=== PATIENT | male | born 1980 | race Caucasian/White ===

== ENCOUNTER 2022-05-08 16:51 | Observation (INO) ==
[2022-05-08 17:44] LABS: Basophils # 0.1 K/mcL (0.0-0.2); Eosinophils # 0.1 K/mcL (0.0-0.6); Eosinophils % 0.8 %; Hematocrit 42.1 % (37.5-50.1); Hemoglobin 13.9 g/dL (12.9-16.9); Immature Granulocytes % 0.4 % (0-4); Lymphocytes # 1.7 K/mcL (0.6-4.6); Lymphocytes % 15.9 %; Mean Corpuscular Hemoglobin 29.1 pg (28.0-33.3); Mean Corpuscular Volume 88.3 fL (83.0-100.0); Mean Platelet Volume 10.7 fL (9.4-12.4); Monocytes # 0.7 K/mcL (0.0-1.3); Monocytes % 6.8 %; Platelet Count 184 K/mcL (140-400); Red Blood Count 4.77 M/mcL (4.19-5.50); Red Cell Distribution Width 14.8 % (11.5-14.5); Segmented Neutrophils % 75.1 %; White Blood Count 10.7 K/mcL (4.3-11.1)
[2022-05-08 18:03] LABS: Alanine Aminotransferase 10 Units/L (7-52); Albumin 3.9 g/dL (3.5-5.7); Albumin/Globulin Ratio 1.1 (1.1-2.2); Alkaline Phosphatase 141 Units/L (34-104); Amylase 47 Units/L (29-103); Aspartate Amino Transferase 29 Units/L (13-39); BUN/Creatinine Ratio 10 (6-26); Bilirubin,Direct 0.7 mg/dL (0.0-0.2); Bilirubin,Indirect 1.4 mg/dL (0.0-1.0); Bilirubin,Total 2.1 mg/dL (0.3-1.0); Blood Urea Nitrogen 5 mg/dL (6-20); Calcium 9.4 mg/dL (8.6-10.3); Carbon Dioxide 18 mEq/L (23-29); Chloride 102 mEq/L (98-107); Globulin 3.6 g/dL (2.4-3.5); Glucose 108 mg/dL (70-105); Lipase 98 Units/L (11-82); Osmolality,Calculated 270 (280-300); Potassium 3.9 mEq/L (3.5-5.1); Sodium 131 mEq/L (136-145); Total Protein 7.5 g/dL (6.4-8.9)
[2022-05-08] MEDS ORDERED: Ondansetron ODT 4 MG TAB.RAPDIS SL ONE (20:44)
[2022-05-08] MEDS ORDERED: 0.9 % Sodium Chloride 1,000 ML IVC ONE (20:44)
[2022-05-08] MEDS ORDERED: Morphine Sulfate 2 MG/ML SYRINGE IVP ONE (20:44)
[2022-05-08] MEDS ORDERED: Iopamidol - 370 500 ML MLS IVP ONE (20:46)
[2022-05-08 21:42] LABS: INR 1.8; Prothrombin Time 19.5 Seconds (9.4-12.1)
[2022-05-08 22:47] LABS: Bilirubin,Urine Negative (Negative); Blood,Urine Negative (Negative); Clarity,Urine Clear (Clear); Color,Urine Yellow (Yellow); Glucose,Urine (UA) Normal (Normal); Ketones,Urine Trace mg/dL (Negative); Leukocyte Esterase,Urine Negative (Negative); Nitrite,Urine Negative (Negative); PH,Urine 5.5 pH Units (5.0-8.0); Protein,Urine Trace mg/dL (Neg-Trace); Specific Gravity,Urine > 1.030 (1.010-1.025); Urobilinogen,Urine Normal (Normal)
[2022-05-08] MEDS ORDERED: cefTRIAXone 1,000 MG in Water for inj. (sterile) 10 ML IVP ONE (23:17)
[2022-05-08] MEDS ORDERED: MetroNIDAZOLE 500 MG/100 ML 500 MG/100 ML BAG IVPB ONE (23:17)
[2022-05-08] MEDS ORDERED: Ondansetron 4 MG/2 ML VIAL IVP PRN (23:28)
[2022-05-08] MEDS ORDERED: Melatonin 3 MG TABLET PO PRN (23:28)
[2022-05-08] MEDS ORDERED: Naloxone 0.4 MG/ML INJ IVP PRN (23:28)
[2022-05-09] MEDS ORDERED: Ringers Solution, Lactated 1,000 ML IVC SCH (00:15)
[2022-05-09] MEDS ORDERED: *HR* HYDROcodone/Acet 5/325 mg TABLET PO PRN (01:29)
[2022-05-09] MEDS ORDERED: *HR* HYDROcodone/Acet 10/325 mg TABLET PO PRN (01:29)
[2022-05-09] MEDS: *HR* OxyCODONE Immed Rel 5 MG TABLET PO PRN (03:04)
[2022-05-09 03:06] LABS: Hematocrit 36.6 % (37.5-50.1); Mean Corpuscular HGB Conc 32.5 g/dL (31.6-35.5); Mean Corpuscular Hemoglobin 29.1 pg (28.0-33.3); Mean Corpuscular Volume 89.5 fL (83.0-100.0); Mean Platelet Volume 10.2 fL (9.4-12.4); Platelet Count 176 K/mcL (140-400); Red Blood Count 4.09 M/mcL (4.19-5.50); Red Cell Distribution Width 14.6 % (11.5-14.5); White Blood Count 7.6 K/mcL (4.3-11.1)
[2022-05-09 03:17] LABS: Hemoglobin 11.9 g/dL (12.9-16.9)
[2022-05-09 03:19] LABS: INR 1.7; Prothrombin Time 19.4 Seconds (9.4-12.1)
[2022-05-09 03:27] LABS: Alanine Aminotransferase 10 Units/L (7-52); Albumin 3.4 g/dL (3.5-5.7); Alkaline Phosphatase 120 Units/L (34-104); Aspartate Amino Transferase 28 Units/L (13-39); BUN/Creatinine Ratio 11 (6-26); Bilirubin,Direct 0.6 mg/dL (0.0-0.2); Bilirubin,Total 1.6 mg/dL (0.3-1.0); Blood Urea Nitrogen 5 mg/dL (6-20); Calcium 8.5 mg/dL (8.6-10.3); Carbon Dioxide 22 mEq/L (23-29); Chloride 101 mEq/L (98-107); Globulin 3.3 g/dL (2.4-3.5); Glucose 90 mg/dL (70-105); Magnesium 1.9 mg/dL (1.6-2.6); Osmolality,Calculated 269 (280-300); Phosphorous 3.8 mg/dL (2.7-4.5); Potassium 3.9 mEq/L (3.5-5.1); Sodium 131 mEq/L (136-145); Total Protein 6.7 g/dL (6.4-8.9)
[2022-05-09] MEDS: *HR* HYDROmorphone (PF) 1 MG/ML SYRINGE IVP PRN ×4 (04:52→19:59)
[2022-05-09] MEDS: Lactulose Oral Soln 20 GM/30 ML UDC PO SCH ×4 (08:36→19:59)
[2022-05-09] MEDS: MetroNIDAZOLE 500 MG/100 ML 500 MG/100 ML BAG IVPB SCH ×2 (08:37→16:11)
[2022-05-09] MEDS ORDERED: Furosemide 20 MG TABLET PO SCH (09:00)
[2022-05-09] MEDS: Gabapentin 100 MG CAPSULE PO SCH ×2 (15:22→19:59)
[2022-05-09] MEDS: ALPRAZolam 0.25 MG TABLET PO PRN (16:11)
[2022-05-10] MEDS: ALPRAZolam 0.25 MG TABLET PO PRN ×3 (00:02→16:36)
[2022-05-10] MEDS: MetroNIDAZOLE 500 MG/100 ML 500 MG/100 ML BAG IVPB SCH ×2 (00:02→08:29)
[2022-05-10] MEDS: *HR* HYDROmorphone (PF) 1 MG/ML SYRINGE IVP PRN ×2 (00:02→04:17)
[2022-05-10] MEDS: *HR* OxyCODONE Immed Rel 5 MG TABLET PO PRN ×4 (02:16→20:55)
[2022-05-10 02:29] LABS: Basophils # 0.1 K/mcL (0.0-0.2); Basophils % 1.4 %; Eosinophils # 0.1 K/mcL (0.0-0.6); Eosinophils % 2.9 %; Hematocrit 35.2 % (37.5-50.1); Hemoglobin 11.6 g/dL (12.9-16.9); Immature Granulocytes % 0.2 % (0-4); Lymphocytes # 1.2 K/mcL (0.6-4.6); Mean Corpuscular Hemoglobin 29.1 pg (28.0-33.3); Mean Corpuscular Volume 88.4 fL (83.0-100.0); Mean Platelet Volume 10.6 fL (9.4-12.4); Monocytes # 0.6 K/mcL (0.0-1.3); Monocytes % 13.1 %; Neutrophils # 2.4 K/mcL (1.6-8.9); Platelet Count 158 K/mcL (140-400); Red Blood Count 3.98 M/mcL (4.19-5.50); Red Cell Distribution Width 14.7 % (11.5-14.5); Segmented Neutrophils % 54.4 %; White Blood Count 4.4 K/mcL (4.3-11.1)
[2022-05-10 02:47] LABS: Alanine Aminotransferase 14 Units/L (7-52); Albumin 3.2 g/dL (3.5-5.7); Alkaline Phosphatase 108 Units/L (34-104); Aspartate Amino Transferase 34 Units/L (13-39); BUN/Creatinine Ratio 5 (6-26); Bilirubin,Total 1.3 mg/dL (0.3-1.0); Blood Urea Nitrogen 3 mg/dL (6-20); Calcium 8.5 mg/dL (8.6-10.3); Carbon Dioxide 25 mEq/L (23-29); Chloride 101 mEq/L (98-107); Globulin 3.1 g/dL (2.4-3.5); Glucose 93 mg/dL (70-105); Magnesium 1.8 mg/dL (1.6-2.6); Osmolality,Calculated 270 (280-300); Phosphorous 3.1 mg/dL (2.7-4.5); Potassium 3.8 mEq/L (3.5-5.1); Sodium 132 mEq/L (136-145); Total Protein 6.3 g/dL (6.4-8.9)
[2022-05-10] MEDS: Magnesium Oxide 400 MG TABLET PO SCH (08:28)
[2022-05-10] MEDS: Gabapentin 100 MG CAPSULE PO SCH ×3 (08:28→20:55)
[2022-05-10] MEDS: Lactulose Oral Soln 20 GM/30 ML UDC PO SCH ×3 (08:34→21:23)
[2022-05-10] MEDS ORDERED: Furosemide 20 MG TABLET PO SCH (09:00)
[2022-05-10] MEDS ORDERED: Iopamidol - 370 500 ML MLS IVP ONE (09:02)
[2022-05-11] MEDS: *HR* OxyCODONE Immed Rel 5 MG TABLET PO PRN ×2 (02:58→09:31)
[2022-05-11] MEDS: ALPRAZolam 0.25 MG TABLET PO PRN (06:54)
[2022-05-11] MEDS: Gabapentin 100 MG CAPSULE PO SCH (09:30)
[2022-05-11] MEDS: Magnesium Oxide 400 MG TABLET PO SCH (09:31)
[2022-05-11] MEDS: Lactulose Oral Soln 20 GM/30 ML UDC PO SCH (09:31)
[2022-05-11 11:15] VITALS: BP 109/68; PULSE 79; TEMP 97.9; O2SAT 92
== END 2022-05-11 14:48 | disposition home or self-care (01) ==
LOC: EMEROOARM 16:51 → 3BNU 16:51 → SUATTDRO 23:41 → 3BNU 05-09 00:25
PROVIDERS: ADMIT Student in an Organized Health Care Education/Training Program; ATTEND Internal Medicine